=== PATIENT | female | born 2000 | race Two or more races ===

== ENCOUNTER 2020-12-03 15:32 | Emergency (ER) | payer MEDICAID ==
[~2020-12-03] VITALS: Ht 152.4 cm; Wt 57.2 kg
[2020-12-03 15:35] VITALS: BP 112/71
[2020-12-03 17:02] LABS: Urine Bacteria MOD /hpf (None Seen); Urine Blood TRACE /uL (Negative); Urine Specific Gravity 1.011 (1.001-1.035); Urine WBC 238 /hpf (0 - 5)
[2020-12-03] MEDS ORDERED: cefTRIAXone SOD 1,000 MG VL IM ONE (17:15)
[2020-12-03] MEDS ORDERED: PHENAZOPYRIDINE HCL 100 MG TAB PO ONE (17:15)
== END 2020-12-03 17:46 | disposition home or self-care (01) ==
LOC: ER 15:32
DX: O23.12 Infections of bladder in pregnancy, second trimester (principal); Z3A.23 23 weeks gestation of pregnancy
CPT/HCPCS: 76805; 81001; 81025; 96372; 99284; J0696